=== PATIENT | female | born 1985 | race Caucasian/White ===

== ENCOUNTER → 2022-03-27 11:23 | Outpatient (CLI) | payer OTHER, SELFPAY ==
--- NOTE | 2022-03-27 | DI.RAD.S_ITS ---
PROCEDURE: XR CERVICAL SPINE 2V OR 3V INDICATIONS: cervicalgia TECHNIQUE: 3 view(s) of the cervical spine were acquired. COMPARISON: None. FINDINGS: Bones: No fractures or dislocations to the C7-T1 level. Mild straightening of normal cervical lordosis is seen. The lateral masses of C1 appear intact on the odontoid view. No suspicious bony lesions. Soft tissues: No prevertebral soft tissue swelling. IMPRESSION: Mild straightening of normal cervical lordosis which may represent neck muscle spasm. No cervical spine fracture or dislocation. Dictated by: Brayan Springer M.D. on 03/27/2022 at 14:42 Approved by: Brayan Springer M.D. on 03/27/2022 at 14:43
--- NOTE | 2022-03-27 | DI.RAD.S_ITS ---
PROCEDURE: XR LUMBAR SPINE 2-3V INDICATIONS: back pain TECHNIQUE: 2 views of the lumbar spine were acquired. COMPARISON: None. FINDINGS: Bones: 5 [id number] vertebrae are present. There is mild levoscoliosis centered at L2 level. No vertebral body compression fractures. No suspicious bony lesions. Soft tissues: Overlying bowel gas pattern is normal. No suspicious soft tissue calcifications. IMPRESSION: Mild levoscoliosis centered at L2 level. No compression fracture or spondylolisthesis. Dictated by: Brayan Springer M.D. on 03/27/2022 at 14:43 Approved by: Brayan Springer M.D. on 03/27/2022 at 14:43
--- NOTE | 2022-03-27 | DI.RAD.S_ITS ---
PROCEDURE: XR THORACIC SPINE 2V INDICATIONS: back pain TECHNIQUE: 3 views of the thoracic spine were acquired. COMPARISON: None. FINDINGS: Bones: No fractures or dislocations. Very mild rightward curvature of lower thoracic spine centered at T9 level is seen. No suspicious bony lesions. 12 pairs of ribs are noted, and appear intact where visualized. Soft tissues: No paravertebral stripe thickening. IMPRESSION: Very mild dextroscoliosis of mid to lower thoracic spine centered at T9 level. No compression fracture or spondylolisthesis. Dictated by: Brayan Springer M.D. on 03/27/2022 at 14:43 Approved by: Bryaan Springer M.D. on 03/27/2022 at 14:46
== END ==
PROVIDERS: Referring Provider Chiropractor; Visit Provider Chiropractor
DX: M99.11 Subluxation complex (vertebral) of cervical region (principal); M99.12 Subluxation complex (vertebral) of thoracic region; M99.13 Subluxation complex (vertebral) of lumbar region; M54.2 Cervicalgia; M54.6 Pain in thoracic spine; M54.50 Low back pain, unspecified; M41.84 Other forms of scoliosis, thoracic region; M41.86 Other forms of scoliosis, lumbar region
CPT/HCPCS: 72040; 72070; 72100

== ENCOUNTER → 2024-07-08 12:00 | Outpatient (CLI) | payer OTHER, SELFPAY ==
--- NOTE | 2024-07-08 12:01 | DI.MG.S_ITS ---
UNILATERAL LEFT DIGITAL DIAGNOSTIC MAMMOGRAM 3D/2D WITH ADDITIONAL VIEWS: 07/08/2024 CLINICAL: Additional evaluation requested from prior study. Comparison is made to exam dated: 07/02/2024 mammogram - [facility]. There are scattered areas of fibroglandular density (category b / 25%-50% glandular tissue). There is a 1.2 cm oval equal density focal asymmetry in the left breast at 1 o'clock middle depth. This is seen in additional views. No other significant masses or calcifications are seen in the breast. IMPRESSION: INCOMPLETE: NEED ADDITIONAL IMAGING EVALUATION The 1.2 cm oval equal density focal asymmetry in the left breast resembles a cyst, a lymph node, or a fibroadenoma and is indeterminate. An ultrasound is recommended for further evaluation and is scheduled to immediately follow this examination. Based on the Tyrer Cuzick model (a risk assessment model) the patient's lifetime risk is 10.3% and her 10 year risk is 1.3%. According to the ACR, ACS, and NCCN guidelines, an annual breast MRI exam along with mammogram is recommended if the patient's lifetime risk is 20% or greater. This exam was interpreted at Station ID: [id number]. NOTE: For mammograms, a report in lay terms will be sent to the patient. Approximately 15% of breast malignancies will not be visualized mammographically. In the management of a palpable breast mass, a negative mammogram must not discourage biopsy of a clinically suspicious lesion. Electronically Signed By: Domingo Dukes M.D. aty/:07/08/2024 12:47:58 letter sent: Additional Imaging Needed ACR BI-RADS Category 0: Incomplete: Need Additional Imaging Evaluation
--- NOTE | 2024-07-08 12:01 | DI.US.S_ITS ---
LIMITED ULTRASOUND OF LEFT BREAST: 07/08/2024 CLINICAL: Patient returns today to evaluate a focal asymmetry in the left breast. Comparison is made to exams dated: 07/08/2024 mammogram - [facility], 07/02/2024 mammogram - [facility], and 07/02/2024 mammogram - [facility]. Color flow and real-time ultrasound of the left breast 2 o'clock region were performed. Gibson scale images of the real-time examination were reviewed. There is a benign 1.1 cm x 0.4 cm x 1 cm wider than tall oval cyst in the left breast at 2 o'clock middle depth 6 cm from the nipple. This oval cyst is hypoechoic. This correlates with mammography findings. Color flow imaging demonstrates that there is no vascularity present. IMPRESSION: BENIGN There is no sonographic evidence of malignancy. The 1.1 cm x 0.4 cm x 1 cm wider than tall oval cyst in the left breast is consistent with a simple cyst and is benign. A 1 year screening mammogram is recommended. Findings and recommendations were conveyed to the patient during today's evaluation. This exam was interpreted at Station ID: [id number]. Electronically Signed By: Domingo Dukes M.D. aty/:07/08/2024 13:32:11 letter sent: Normal Exam ACR BI-RADS Category 2: Benign
== END ==
LOC: MAMMO 12:00
PROVIDERS: Referring Provider Family Medicine; Visit Provider Family Medicine
DX: R92.8 Other abnormal and inconclusive findings on diagnostic imaging of breast (principal); N60.02 Solitary cyst of left breast
CPT/HCPCS: 76642; 77065; G0279